=== PATIENT | female | born 1975 | race Two or more races ===

== ENCOUNTER 2022-08-25 11:13 | Emergency (ER) | payer SELFPAY ==
[~2022-08-25] VITALS: Ht 162.6 cm; Wt 63.5 kg
[2022-08-25] MEDS ORDERED: SODIUM CHLORIDE 0.9% 1000ML 1,000 ML IV STA (12:01)
[2022-08-25] MEDS ORDERED: ONDANSETRON HCL INJ 2MG/ML 2ML 2 MG/ML VIAL IV ONE (12:15)
[2022-08-25] MEDS ORDERED: DEXAMETHASONE SOD PHOS INJ 4 MG/ML SDV IV ONE (12:15)
[2022-08-25] MEDS ORDERED: KETOROLAC TROMETHAMINE 30 MG/ML VIAL IV ONE (12:15)
[2022-08-25] MEDS ORDERED: FAMOTIDINE 20 MG/2 ML VIAL IV ONE ×2 (12:15→13:00)
[2022-08-25] MEDS ORDERED: ONDANSETRON HCL INJ 2MG/ML 2ML 2 MG/ML VIAL ONE (12:59)
[2022-08-25] MEDS ORDERED: KETOROLAC TROMETHAMINE 30 MG/ML VIAL ONE (12:59)
[2022-08-25] MEDS ORDERED: SODIUM CHLORIDE 0.9% 1000ML 1,000 ML ONE (12:59)
[2022-08-25] MEDS ORDERED: DEXAMETHASONE SOD PHOS INJ 4 MG/ML SDV ONE (12:59)
[2022-08-25] MEDS ORDERED: THERAFLU FLU &1 EAC1 PO (13:04)
[2022-08-25] MEDS ORDERED: VENTOLIN HFA18 GM INH (13:04)
[2022-08-25] MEDS ORDERED: LEVOFLOXACIN500 MG PO (13:04)
[2022-08-25] MEDS ORDERED: IOPAMIDOL 370 MG/ML 100 ML INFUS..BTL INJ ONE (13:07)
[2022-08-25] MEDS ORDERED: CEFTRIAXONE 1 GM VIAL ONE (13:27)
== END 2022-08-25 13:46 | disposition home or self-care (01) ==
LOC: FSED 11:16
DX: R06.02 Shortness of breath (principal); J18.9 Pneumonia, unspecified organism; R07.1 Chest pain on breathing; R05.9 Cough, unspecified
CPT/HCPCS: 71260; 80048; 81003; 83518; 85379; 87400; 99284; J0696; J1100; J1885; J2405; J7030; Q9967